=== PATIENT | male | born 1975 | race Caucasian/White ===

== ENCOUNTER 2018-12-09 13:18 | Emergency (ER) | payer OTHER ==
--- NOTE | 2018-12-09 13:36 | PDOC ---
Rapid Medical Evaluation Time Seen by Provider: 12/09/18 13:33 Medical Evaluation: 12/09/18 13:34 I have performed a brief in-person evaluation of this patient. The patient presents with a chief complaint of: Chest pain, difficulty breathing worse at night. No cough, no URI symtpoms. Also c/o a rash and itching behind his ears. I have ordered the following: EKG, CXR, labs The patient will proceed to the ED for further evaluation. Discharge Disposition - Diagnosis Chest pain - Referrals - Patient Instructions - Post Discharge Activity
[2018-12-09 13:39] VITALS: BP 124/85; PULSE 96; TEMP 97.8; BMI 28.1
--- NOTE | 2018-12-09 14:17 | PDOC ---
History of Present Illness - History of Present Illness Initial Comments: 43 year old male with PMH of hypercholesterolemia presenting with epigastric burning for the past month with a bad taste in the back of his throat. Patient states that he does not have any burning in the back of his throat but does have worsening pain after eating. Denies any nausea, vomiting, diarrhea, radiation of pain, urinary symptoms, fevers, or other symptoms. He does smoke rarely and has a mother who had "some problem with the vein of her heart at age 50". 12/09/18 14:28 <Dannielle Crane - Last Filed: 12/09/18 15:38> <Gaston Falcon - Last Filed: 12/09/18 16:30> - General Chief Complaint: Chest Pain Stated Complaint: CHEST PAIN Time Seen by Provider: 12/09/18 13:33 Past History - Past Medical History COPD: No - Psycho Social/Smoking Cessation Hx Smoking History: Never smoked Have you smoked in the past 12 months: No Information on smoking cessation initiated: No Hx Alcohol Use: No Drug/Substance Use Hx: No <Dannielle Crane - Last Filed: 12/09/18 15:38> <Gaston Falcon - Last Filed: 12/09/18 16:30> - Past Medical History Allergies/Adverse Reactions: Allergies Allergy/AdvReac Type Severity Reaction Status Date / Time No Known Allergies Allergy Verified 12/09/18 13:36 Home Medications: Ambulatory Orders Famotidine [Pepcid] 20 mg PO DAILY 30 Days #30 tablet 12/09/18 Review of Systems - Review of Systems Constitutional: No: Chills, Diaphoresis, Fever HEENTM: No: Blurred Vision, Tearing, Cataracts, Ear Pain Respiratory: No: Cough, Orthopnea, Shortness of Breath Cardiac (ROS): No: Chest Pain ABD/GI: No: Diarrhea, Nausea, Vomiting, Tarry Stools : No: Burning, Dysuria, Discharge Musculoskeletal: No: Back Pain, Joint Pain Integumentary: No: Bruising, Dryness, Erythema Neurological: No: Headache, Numbness, Paresthesia Psychiatric: No: Anxiety, Depression Hematologic/Lymphatic: No: Anemia, Blood Clots, Easy Bleeding <Dannielle Crane - Last Filed: 12/09/18 15:38> *Physical Exam - Vital Signs Last Vital Signs Temp Pulse Resp BP Pulse Ox 97.8 F 96 H 17 124/85 98 12/09/18 13:34 12/09/18 13:34 12/09/18 13:34 12/09/18 13:34 12/09/18 13:34 - Physical Exam General Appearance: Yes: Nourished, Appropriately Dressed. No: Apparent Distress HEENT: positive: EOMI, HUGO, Normal ENT Inspection, Normal Voice Neck: positive: Trachea midline, Normal Thyroid, Supple. negative: Tender, Rigid Respiratory/Chest: positive: Lungs Clear, Normal Breath Sounds. negative: Chest Tender, Respiratory Distress, Accessory Muscle Use Gastrointestinal/Abdominal: positive: Normal Bowel Sounds, Tender (mild epigastric tenderness), Flat, Soft Lymphatic: negative: Adenopathy, Tenderness Musculoskeletal: positive: Normal Inspection Extremity: positive: Normal Capillary Refill, Normal Inspection, Normal Range of Motion. negative: Tender Integumentary: positive: Normal Color, Dry, Warm Neurologic: positive: filler spreader II-XII NML intact, Fully Oriented, Alert, Normal Mood/ Affect, Normal Response, Motor Strength 5/5 <Dannielle Crane - Last Filed: 12/09/18 15:38> - Vital Signs Last Vital Signs Temp Pulse Resp BP Pulse Ox 97.8 F 96 H 17 124/85 98 12/09/18 13:34 12/09/18 13:34 12/09/18 13:34 12/09/18 13:34 12/09/18 13:34 <Gaston Falcon - Last Filed: 12/09/18 16:30> Heart Score/ECG Review - History History: Slightly suspicious - Electrocardiogram EKG: Normal - Age Age: </= 45 - Risk Factors Risk Factors Heart Score: Yes Hx Hypercholesterolemia, Yes Smoking History, Yes Positive family hx of cardiac disease Based on the list above the patient has:: >/=3 risk factors or Hx atherosclerotic disease - Troponin Troponin: </= normal limit - Score Heart Score - Total: 2 <Dannielle Crane - Last Filed: 12/09/18 15:38> ED Treatment Course - LABORATORY CBC & Chemistry Diagram: 12/09/18 14:34 12/09/18 14:34 <Dannielle Crane - Last Filed: 12/09/18 15:38> - LABORATORY CBC & Chemistry Diagram: 12/09/18 14:34 12/09/18 14:34 - ADDITIONAL ORDERS Additional order review: Laboratory Results 12/09/18 12/09/18 12/09/18 14:34 14:34 14:34 Sodium 140 Potassium 3.9 Chloride 104 Carbon Dioxide 27 Anion Gap 9 BUN 15.0 Creatinine 0.8 Est GFR (CKD-EPI)AfAm 128.60 Est GFR (CKD-EPI)NonAf 110.96 Random Glucose 79 Calcium 9.2 Phosphorus 4.9 Magnesium 2.3 Total Bilirubin 0.4 AST 30 ALT 86 H Alkaline Phosphatase 99 Creatine Kinase 146 Troponin I < 0.02 Total Protein 7.3 Albumin 4.1 Lipase 148 12/09/18 14:34 RBC 5.00 MCV 91.2 MCHC 34.4 RDW 13.5 MPV 9.3 Neutrophils % 64.0 Lymphocytes % 25.1 Monocytes % 9.0 Eosinophils % 1.4 Basophils % 0.5 - Medications Given in the ED: ED Medications Discontinued Medications Generic Name Dose Route Start Last Admin Trade Name Jesusq PRN Reason Stop Dose Admin Al Hydroxide/Mg Hydroxide 30 ml 12/09/18 14:23 12/09/18 14:40 Mylanta Oral Suspension - PO 12/09/18 14:24 30 ml ONCE ONE Administration Famotidine/Sodium Chloride 20 mg in 50 mls @ 100 mls/hr 12/09/18 14:23 14:40 Pepcid 20 Mg Premixed Ivpb - IVPB 12/09/18 14:52 100 mls/hr ONCE ONE Administration <Gaston Falcon - Last Filed: 12/09/18 16:30> Medical Decision Making - Medical Decision Making 43 year old male with one month of epigsatric pain, worse with food and with a bad taste in the back of his mouth. The pain does not radiate or co-present with nausea, vomiting, SOB, or other symptoms. Labs all WNL including troponin ( HS 2) and pain improved Maalox and Pepcid. EKG demonstrating rate 79, AL 136, QRS 86, QTc 421, normal axis, without ST changes or t-wave inversion. Will have him arrange follow up with his PCP and GI as well as give him a follow up with our GI physician. 12/09/18 14:57 <Dannielle Crane - Last Filed: 12/09/18 15:38> - Medical Decision Making 12/09/18 16:30 I reviewed the case of the mid-level practitioner and was available for consultation while in the emergency department <Gaston Falcon - Last Filed: 12/09/18 16:30> Discharge - Discharge Information Problems reviewed: Yes - Admission No <Dannielle Crane - Last Filed: 12/09/18 15:38> <Gaston Falcon - Last Filed: 12/09/18 16:30> - Discharge Information Clinical Impression/Diagnosis: Epigastric pain Condition: Improved Disposition: HOME - Additional Discharge Information Prescriptions: Famotidine [Pepcid] 20 mg PO DAILY 30 Days #30 tablet - Follow up/Referral Referrals: Kenney Serrano MD [Primary Care Provider] - [facility] [Provider Group] - Patient Discharge Instructions Patient Printed Discharge Instructions: DI for Epigastric Pain Additional Instructions: Por favor tome la medicina bautista vez al da. Lesly un seguimiento con valladares mdico de atencin primaria esta semana y cunteles sobre valladares dolor de estmago. Regrese al servicio de urgencias si tiene sntomas nuevos o que empeoran. - Post Discharge Activity
[2018-12-09] MEDS ORDERED: MAG HYDROX/AL HYDROX/SIMETH 30 ML UNIT-DOSE CUP PO ONE (14:23)
[2018-12-09] MEDS ORDERED: FAMOTIDINE 20 MG/50 ML IVPB 20 MG/50 ML MG IVPB ONE ×2 (14:23→14:29)
[2018-12-09] MEDS ORDERED: MAG HYDROX/AL HYDROX/SIMETH 30 ML UNIT-DOSE CUP ONE (14:29)
[2018-12-09 14:49] LABS: BASO % 0.5 % (0-2.0); EOS % 1.4 % (0-4.5); HEMATOCRIT 45.6 % (35.4-49); HEMOGLOBIN 15.7 GM/dL (11.7-16.9); LYMPH % 25.1 % (8-40); MCH 31.4 pg (25.7-33.7); MCHC 34.4 g/dl (32.0-35.9); MEAN CELL VOLUME 91.2 fl (80-96); MEAN PLT VOLUME 9.3 fl (7.5-11.1); PLATELET COUNT 206 K/MM3 (134-434); RDW 13.5 % (11.9-15.9); WHITE BLOOD COUNT 9.5 K/mm3 (4.0-10.0)
[2018-12-09 15:09] LABS: MAGNESIUM 2.3 mg/dL (1.8-2.4)
[2018-12-09 15:18] LABS: ALBUMIN 4.1 g/dl (3.4-5.0); ALK PHOS 99 U/L (45-117); ANION GAP 9 MMOL/L (8-16); BILIRUBIN,TOTAL 0.4 mg/dL (0.2-1); CALCIUM 9.2 mg/dL (8.5-10.1); CHLORIDE 104 mmol/L (98-107); CO2 27 mmol/L (21-32); CREATININE 0.8 mg/dL (0.55-1.3); GLUCOSE,RANDOM 79 mg/dL (74-106); POTASSIUM 3.9 mmol/L (3.5-5.1); SGOT/AST 30 U/L (15-37); SGPT/ALT 86 U/L (13-61); SODIUM 140 mmol/L (136-145); TOT PROT 7.3 g/dl (6.4-8.2)
--- NOTE | 2018-12-10 14:47 | EKG ---
Test Reason : Blood Pressure : / mmHG Vent. Rate : 079 BPM Atrial Rate : 079 BPM P-R Int : 136 ms QRS Dur : 086 ms QT Int : 368 ms P-R-T Axes : 029 025 056 degrees QTc Int : 421 ms NORMAL SINUS RHYTHM NORMAL ECG NO PREVIOUS ECGS AVAILABLE Confirmed by NITHYA TUBBS, ADELINE ([id number]) on 12/10/2018 2:46:30 PM Referred By: Confirmed By:ADELINE BARRIGA MD
--- NOTE | 2018-12-13 11:06 | EKG ---
Test Reason : Blood Pressure : / mmHG Vent. Rate : 078 BPM Atrial Rate : 078 BPM P-R Int : 132 ms QRS Dur : 084 ms QT Int : 346 ms P-R-T Axes : 042 054 057 degrees QTc Int : 394 ms POOR DATA QUALITY, INTERPRETATION MAY BE ADVERSELY AFFECTED NORMAL SINUS RHYTHM NORMAL ECG NO PREVIOUS ECGS AVAILABLE Confirmed by Félix Keith MD ([id number]) on 12/13/2018 11:06:09 AM Referred By: Confirmed By:Félix Keith MD
--- NOTE | 2018-12-28 15:53 | PDOC ---
Attending Attestation - Resident Resident Name: Rosa MariaLesliegalinaania - ED Attending Attestation I have performed the following: I have examined & evaluated the patient, The case was reviewed & discussed with the resident, I agree w/resident's findings & plan, Exceptions are as noted - HPI HPI: 12/28/18 15:51 43 y/o with epigastric pain and burning sensation - Physicial Exam PE: 12/28/18 15:51 Heart: RRR Lungs: CTA ABD: Soft, no rebound no gaurding, mild epigastric ttp - Medical Decision Making 12/28/18 15:52 43 year old male with one month of epigsatric pain, worse with food and with a bad taste in the back of his mouth. EKG demonstrating rate 79, RI 136, QRS 86, QTc 421, normal axis, with no ST changes or t-wave inversion. Heart Score 2. Trop neg, labs wnl Feels better after Maalox. Plan: follow up with his PCP and GI
== END 2018-12-09 16:34 | disposition home or self-care (01) ==
LOC: JER 13:18
PROC: 3E033GC Introduction of Other Therapeutic Substance into Peripheral Vein, Percutaneous Approach (ICD-10-PCS; principal; 2018-12-09)
DX: R10.13 Epigastric pain (principal); I10 Essential (primary) hypertension; E78.00 Pure hypercholesterolemia, unspecified; F17.210 Nicotine dependence, cigarettes, uncomplicated
CPT/HCPCS: 36415; 71046-TC-FY; 80053; 82550; 83690; 83735; 84100; 84484; 85025; 93005; 93010; 96365; 99283-25

== ENCOUNTER 2019-03-31 11:39 | Emergency (ER) | payer OTHER ==
[2019-03-31 12:00] VITALS: BP 127/83; PULSE 89; TEMP 98.6; BMI 27.5
[2019-03-31 14:40] LABS: BASO % 0.8 % (0-2.0); EOS % 2.3 % (0-4.5); HEMATOCRIT 42.3 % (35.4-49); HEMOGLOBIN 14.7 GM/dL (11.7-16.9); LYMPH % 29.7 % (8-40); MCH 31.7 pg (25.7-33.7); MCHC 34.7 g/dl (32.0-35.9); MEAN CELL VOLUME 91.3 fl (80-96); MEAN PLT VOLUME 9.1 fl (7.5-11.1); MONO % 8.9 % (3.8-10.2); NEUT % 58.3 % (42.8-82.8); PLATELET COUNT 205 K/MM3 (134-434); RBC 4.64 M/mm3 (4.00-5.60); RDW 13.3 % (11.9-15.9); WHITE BLOOD COUNT 7.8 K/mm3 (4.0-10.0)
[2019-03-31 15:01] LABS: MAGNESIUM 2.5 mg/dL (1.8-2.4)
[2019-03-31 15:23] LABS: ALBUMIN 4.1 g/dl (3.4-5.0); BILIRUBIN,TOTAL 0.6 mg/dL (0.2-1); BLOOD UREA NITROGEN 13.1 mg/dL (7-18); CALCIUM 9.6 mg/dL (8.5-10.1); CREATININE 0.8 mg/dL (0.55-1.3); POTASSIUM 4.3 mmol/L (3.5-5.1); TOT PROT 7.5 g/dl (6.4-8.2)
--- NOTE | 2019-03-31 15:28 | PDOC ---
History of Present Illness - General Chief Complaint: Pain, Acute Stated Complaint: ABD PAIN Time Seen by Provider: 03/31/19 13:08 History Source: Patient Exam Limitations: No Limitations - History of Present Illness Initial Comments: 03/31/19 14:34 43-year-old male presents to ED for evaluation of abdominal pain with a temperature of 100.9 last night. Patient states status post surgery performed by Dr. Puckett on the at [facility] for varicose veins of the left testicle. Patient states has no pain to the surgical site and denies any difficulty urinating moving his bowels nausea, redness or drainage from the surgical site. Patient was told by Dr. Puckett to go to the ER since he was unable to see patient in the office. Patient states pain has resolve and has not had a fever since last night. Patient states took his amoxicillin and Toradol as prescribed. Is this a multiple visit Asthma Patient?: No Timing/Duration: resolved prior to arrival Severity: mild Associated Symptoms: reports: fever/chills, other Past History - Travel Traveled outside of the country in the last 30 days: No Close contact w/someone who was outside of country & ill: No - Past Medical History Allergies/Adverse Reactions: Allergies Allergy/AdvReac Type Severity Reaction Status Date / Time No Known Allergies Allergy Verified 03/31/19 12:01 Home Medications: Ambulatory Orders Amox-Tr/K Cl [Augmentin 500-125mg Tablet -] 1 tab PO BID 03/31/19 Ketorolac Tromethamine 1 tab PO TID PRN 03/31/19 Oxycodone HCl/Acetaminophen [Percocet 5-325 mg Tablet] 1 - 2 tab PO Q6H PRN #12 tab MDD 4 03/31/19 COPD: No Hypercholesterolemia: Yes - Surgical History Abdominal Surgery: Yes (varicolcelectomy 03/29/19) - Psycho Social/Smoking Cessation Hx Smoking History: Never smoked Have you smoked in the past 12 months: No Hx Alcohol Use: No Drug/Substance Use Hx: No Patient Lives Alone: No Lives with/in: parents Review of Systems - Review of Systems Able to Perform ROS?: No Is the patient limited [place] proficient: No Constitutional: Yes: Fever HEENTM: No: Symptoms Reported Respiratory: No: Symptoms reported Cardiac (ROS): No: Symptoms Reported ABD/GI: Yes: Abdominal cramping : No: Symptoms Reported Musculoskeletal: No: Symptoms Reported Integumentary: No: Symptoms Reported Neurological: No: Symptoms reported *Physical Exam - Vital Signs Last Vital Signs Temp Pulse Resp BP Pulse Ox 98.6 F 89 18 127/83 98 03/31/19 11:58 03/31/19 11:58 03/31/19 11:58 03/31/19 11:58 03/31/19 11:58 - Physical Exam General Appearance: Yes: Nourished, Appropriately Dressed. No: Apparent Distress HEENT: positive: Pharynx Normal. negative: Pale Conjunctivae Neck: positive: Normal Thyroid Respiratory/Chest: positive: Lungs Clear, Normal Breath Sounds. negative: Respiratory Distress, Accessory Muscle Use Cardiovascular: positive: Regular Rhythm, Regular Rate. negative: Murmur Gastrointestinal/Abdominal: positive: Normal Bowel Sounds, Soft. negative: Distended, Guarding, Rebound, Tenderness Male Genitalia: positive: other (Remove bandage to left inguinal area and noted dry intact sutures without signs of infection testicles distended x2 with mild edema to the left testicular region no penile discharge). negative: testicular tenderness Musculoskeletal: negative: CVA Tenderness Extremity: positive: Normal Inspection Integumentary: positive: Normal Color, Warm, Moist Neurologic: positive: Motor Strength 5/5 (Ambulatory) ED Treatment Course - LABORATORY CBC & Chemistry Diagram: 03/31/19 14:10 03/31/19 14:10 - ADDITIONAL ORDERS Additional order review: Laboratory Results 03/31/19 03/31/19 03/31/19 14:17 14:10 14:10 Sodium 140 Potassium 4.3 Chloride 104 Carbon Dioxide 31 Anion Gap 6 L BUN 13.1 Creatinine 0.8 Est GFR (CKD-EPI)AfAm 128.60 Est GFR (CKD-EPI)NonAf 110.96 Random Glucose 81 Lactic Acid 1.0 Calcium 9.6 Magnesium 2.5 H Total Bilirubin 0.6 AST 49 H ALT 68 H Alkaline Phosphatase 91 Total Protein 7.5 Albumin 4.1 Lipase 108 03/31/19 14:10 RBC 4.64 MCV 91.3 MCHC 34.7 RDW 13.3 MPV 9.1 Neutrophils % 58.3 Lymphocytes % 29.7 Monocytes % 8.9 Eosinophils % 2.3 Basophils % 0.8 Medical Decision Making - Medical Decision Making 03/31/19 14:39 Chief complaint: Abdominal pain since surgery varicolcelectomy 03/29/19. But had a temperature of 100.9 yesterday and so was concerned. Patient was told by Dr. Puckett to go to the nearest ER since he was unavailable for consult. patient is currently asymptomatic and took his antibiotic this morning as prescribed Exam: Patient with normal vital signs no acute findings on exam. Suture line intact and dry with manjinder in place Plan labs including lactic acid 03/31/19 15:41 Laboratory Tests 03/31/19 03/31/19 03/31/19 14:10 14:10 14:10 WBC 7.8 Hgb 14.7 Hct 42.3 Plt Count 205 MPV 9.1 Absolute Neuts (auto) 4.6 Neutrophils % 58.3 Sodium 140 Potassium 4.3 Chloride 104 Carbon Dioxide 31 Anion Gap 6 L BUN 13.1 Creatinine 0.8 Lactic Acid Calcium 9.6 Magnesium 2.5 H Total Bilirubin 0.6 AST 49 H ALT 68 H Alkaline Phosphatase 91 Total Protein 7.5 Albumin 4.1 Lipase 108 03/31/19 14:17 WBC Hgb Hct Plt Count MPV Absolute Neuts (auto) Neutrophils % Sodium Potassium Chloride Carbon Dioxide Anion Gap BUN Creatinine Lactic Acid 1.0 Calcium Magnesium Total Bilirubin AST ALT Alkaline Phosphatase Total Protein Albumin Lipase Urine culture pending. Case discussed with Dr. Lindquist and states labs are unchanged from [place]'s lab work done yesterday. He does not recommend any imaging and does request patient to go home with some Percocets in the follow-up with him in the office on Wednesday. Patient wants to go home and agrees with plan Discharge - Discharge Information Problems reviewed: Yes Clinical Impression/Diagnosis: Abdominal pain Condition: Improved Disposition: HOME - Additional Discharge Information Prescriptions: Oxycodone HCl/Acetaminophen [Percocet 5-325 mg Tablet] 1 - 2 tab PO Q6H PRN #12 tab MDD 4 PRN Reason: Pain - Follow up/Referral Referrals: Bal Kidd MD [Primary Care Provider] - Honorio Puckett MD [Staff Physician] - - Patient Discharge Instructions Patient Printed Discharge Instructions: DI for Abdominal Pain-Adult Additional Instructions: Take Percocet as needed for pain but do not drive any vehicle or operate any heavy machinery. Follow-up with Dr. Puckett on Wednesday. If you develop fever worsening pain or nausea please return to the ED sooner - Post Discharge Activity
[2019-03-31 15:43] LABS: EPI CELLS 0.6 /HPF (0-5/HPF); HYALINE CASTS 3 /lpf (0-8); URINE APPEARANCE CLEAR; URINE BACTERIA 3.8 /hpf (NEGATIVE); URINE BILIRUBIN NEGATIVE (NEGATIVE); URINE COLOR YELLOW; URINE GLUCOSE (UA) NEGATIVE (NEGATIVE); URINE KETONE NEGATIVE (NEGATIVE); URINE LEUK ESTERASE NEGATIVE (NEGATIVE); URINE NITRITE NEGATIVE (NEGATIVE); URINE PROTEIN NEGATIVE (NEGATIVE); URINE RBC 5 /hpf (0-4); URINE UROBILINOGEN 0.2 mg/dL (0.2-1.0); URINE WBC 1 /hpf (0-5)
[2019-03-31 15:54] LABS: URINE CRYSTALS FEW /hpf
== END 2019-03-31 15:30 | disposition home or self-care (01) ==
LOC: JER 11:39
DX: R10.9 Unspecified abdominal pain (principal); Z98.890 Other specified postprocedural states
CPT/HCPCS: 36415; 80053; 81003; 83605; 83690; 83735; 85025; 87086; 99283-25

== ENCOUNTER 2020-09-11 10:19 | Emergency (ER) | payer OTHER ==
[2020-09-11 10:58] VITALS: BP 136/96; PULSE 107; TEMP 99.1; BMI 29.5
== END 2020-09-11 11:23 | disposition home or self-care (01) ==
LOC: JER 10:19
DX: J02.9 Acute pharyngitis, unspecified (principal); R09.82 Postnasal drip; R05 Cough; Z11.52 Encounter for screening for COVID-19
CPT/HCPCS: 99283-25; C9803; U0003; U0005

== ENCOUNTER 2022-09-11 19:52 | Emergency (ER) | payer OTHER ==
[2022-09-11 19:56] VITALS: BMI 29.9
[2022-09-11] MEDS ORDERED: ACETAMINOPHEN 1000 MG/100 ML BAG IVPB ONE (20:51)
[2022-09-11] MEDS ORDERED: ACETAMINOPHEN INJECTION 100 ML IVPB ONE (20:57)
[2022-09-11 21:22] VITALS: BP 119/88; PULSE 98; RESP 16; TEMP 99.1
[2022-09-11 21:32] LABS: BASO % 0.5 % (0-2.0); EOS % 1.6 % (0-4.5); HEMATOCRIT 45.5 % (35.4-49); HEMOGLOBIN 15.8 GM/dL (11.7-16.9); LYMPH % 36.6 % (8-40); MCHC 34.8 g/dl (32.0-35.9); MEAN CELL VOLUME 86.2 fl (80-96); MEAN PLT VOLUME 8.4 fl (7.5-11.1); MONO % 7.7 % (3.8-10.2); NEUT % 53.6 % (42.8-82.8); PLATELET COUNT 247 10^3/uL (134-434); RBC 5.27 M/mm3 (4.00-5.60); RDW 13.7 % (11.9-15.9); WHITE BLOOD COUNT 8.9 K/mm3 (4.0-10.0)
[2022-09-11 21:34] LABS: EPI CELLS 5 /uL (0-25.1); HYALINE CASTS 1 /uL (0-3.1); URINE APPEARANCE CLEAR; URINE BACTERIA 7 /uL (0-1359); URINE BILIRUBIN NEGATIVE (NEGATIVE); URINE COLOR YELLOW; URINE GLUCOSE (UA) NEGATIVE (NEGATIVE); URINE KETONE TRACE (NEGATIVE); URINE LEUK ESTERASE 1+ (NEGATIVE); URINE NITRITE NEGATIVE (NEGATIVE); URINE PROTEIN TRACE (NEGATIVE); URINE RBC 100 /uL (0-23.9); URINE UROBILINOGEN 0.2 mg/dL (0.2-1.0); URINE WBC 39 /uL (0-25.8)
[2022-09-11 21:59] LABS: POTASSIUM 3.9 mmol/L (3.5-5.1)
[2022-09-11 22:00] LABS: CALCIUM 9.5 mg/dL (8.5-10.1)
[2022-09-11 22:01] LABS: ALBUMIN 4.2 g/dl (3.4-5.0); BLOOD UREA NITROGEN 12.1 mg/dL (7-18)
[2022-09-11 22:06] LABS: BILIRUBIN,TOTAL 0.4 mg/dL (0.2-1); TOT PROT 7.6 g/dl (6.4-8.2)
[2022-09-11] MEDS ORDERED: amLODIPine BESYLATE 5 MG TABLET (FP) PO ONE (23:24)
== END 2022-09-11 23:52 | disposition home or self-care (01) ==
LOC: JER 19:52
PROC: 3E033GC Introduction of Other Therapeutic Substance into Peripheral Vein, Percutaneous Approach (ICD-10-PCS; principal; 2022-09-11)
DX: M54.2 Cervicalgia (principal)
CPT/HCPCS: 36415; 70450-TC; 71045-TC-FY; 72125-TC; 80053; 81003; 84484; 85025; 93005; 93010; 99285-25